=== PATIENT | female | born 1955 | race Caucasian/White ===

== ENCOUNTER 2019-03-17 07:20 | Emergency (ER) | payer OTHER ==
[2019-03-17] MEDS ORDERED: MORPHINE 4 MG/ML SYR ONE (07:37)
[2019-03-17] MEDS ORDERED: NA CHLORIDE 0.9% 1,000 ML ONE (07:37)
[2019-03-17] MEDS ORDERED: ONDANSETRON 4 MG/2 ML VIAL ONE (07:37)
[2019-03-17 08:07] LABS: Absolute Lymphocytes (CBC) 1.4 K/uL (0.7-4.9); Basophils % 0.5 % (0-1.3); Hematocrit 43.8 % (36.0-45.0); Lymphocytes % 18.4 % (15.3-44.8); MPV 9.3 fL (7.6-11.3); RBC Red Blood Cell Count 5.05 M/uL (3.86-4.86)
[2019-03-17 08:18] LABS: Albumin 4.1 g/dL (3.4-5.0); Bilirubin Direct 0.2 mg/dL (0-0.2); Bilirubin Total 0.8 mg/dL (0.2-1.0); Protein, Total 7.5 g/dL (6.4-8.2)
--- NOTE | 2019-03-17 09:11 | RAD REPORT ---
EXAM DESCRIPTION: CTAbdomen Pelvis W Contrast - 03/17/2019 8:57 am CLINICAL HISTORY: Abdominal pain. ABD PAIN COMPARISON: Abdomen Pelvis W Contrast dated 02/07/2018; Abdomen 1 View (KUB) dated 03/15/2019 TECHNIQUE: Biphasic CT imaging of the abdomen and pelvis was performed with 100 ml non-ionic IV cont rast. All CT scans are performed using dose optimization technique as appropriate and may include automated exposure control or mA/KV adjustment according to patient size. FINDINGS: The lung bases are clear. The liver, spleen, pancreas, adrenal glands and kidneys are within normal limits. No bowel obstruction, free air, free fluid or abscess. Metallic pill cam is seen in the inferior aspe ct of the cecum. The appendix is not visualized and presumed surgically absent. No evidence of signi ficant lymphadenopathy. No suspicious bony findings. IMPRESSION: No acute intra-abdominal or pelvic finding. Metallic pill cam is noted within the cecum inferiorly.
--- NOTE | 2019-03-17 09:32 | ER ---
Nurse's Notes [facility] Name: Verna Ratliff Age: 63 yrs Sex: Female : 1955 Arrival Date: 03/17/2019 Time: 07:21 Bed 19 Private MD: Diagnosis: Unspecified abdominal pain Presentation: 03/17 07:35 Presenting complaint: Patient states: last she swallowed a pill cam and had iw not passed it, Xray on Wed confirmed pill cam had not passed, was prescribed mag citrate and linzess by Dr. Chester, had large liquid stool last night and then started having severe LUQ pain at 3 am. Transition of care: patient was not received from another setting of care. Onset of symptoms was March 17, 2019. Risk Assessment: Do you want to hurt yourself or someone else? Patient reports no desire to harm self or others. Initial Sepsis Screen: Does the patient meet any 2 criteria? No. Patient's initial sepsis screen is negative. Does the patient have a suspected source of infection? No. Patient's initial sepsis screen is negative. Care prior to arrival: None. 07:35 Method Of Arrival: Ambulatory iw 07:35 Acuity: JONATHAN 3 iw Historical: - Allergies: 07:39 Sulfa (Sulfonamide Antibiotics); iw - Home Meds: 07:52 amlodipine 5 mg tab 1 tab once daily [Active]; losartan 100 mg oral tab 1 tab once iw daily [Active]; Coreg 3.125 mg Oral tab 1 tab 2 times per day [Active]; aspirin 81 mg Oral TbEC 1 tab once daily [Active]; Repatha SureClick 140 mg/mL subcutaneous pnij 1 mL every 2 wks [Active]; Farxiga 5 mg oral tab 2 tabs once daily [Active]; - PMHx: 07:39 Diabetes - NIDDM; Hypertension; Ulcers; iw - PSHx: 07:39 colon resection; Hysterectomy; iw - Immunization history:: Adult Immunizations up to date. - Social history:: Smoking status: Patient/guardian denies using tobacco. - Ebola Screening: : Patient negative for fever greater than or equal to 101.5 degrees Fahrenheit, and additional compatible Ebola Virus Disease symptoms Patient denies exposure to infectious person Patient denies travel to an Ebola-affected area in the 21 days before illness onset No symptoms or risks identified at this time. Screenin:20 Abuse screen: Denies threats or abuse. Nutritional screening: No deficits noted. em Tuberculosis screening: No symptoms or risk factors identified. Fall Risk None identified. Assessment: 07:25 General: Appears in no apparent distress. uncomfortable, Behavior is cooperative, em restless, Denies fever. Pain: Complains of pain in left upper quadrant Pain currently is 10 out of 10 on a pain scale. Quality of pain is described as pressure, sharp. Neuro: Level of Consciousness is awake, alert, obeys commands, Oriented to person, place, time, situation. Cardiovascular: Capillary refill < 3 seconds Patient's skin is warm and dry. Respiratory: Airway is patent Respiratory effort is even, unlabored, Respiratory pattern is regular, symmetrical. GI: Abdomen is flat, Bowel sounds present X 4 quads. Abd is soft X 4 quads Abdomen is tender to palpation in left upper quadrant Reports diarrhea, nausea. Derm: Skin is intact, is healthy with good turgor, Skin is pink, warm \T\ dry. Musculoskeletal: Capillary refill < 3 seconds, Range of motion: intact in all extremities. 08:30 Reassessment: Patient appears in no apparent distress at this time. Patient and/or em family updated on plan of care and expected duration. Pain level reassessed. Patient is alert, oriented x 3, equal unlabored respirations, skin warm/dry/pink. rates pain 5/10 Patient states feeling better. 09:54 Reassessment: Patient appears in no apparent distress at this time. Patient and/or em family updated on plan of care and expected duration. Pain level reassessed. Patient is alert, oriented x 3, equal unlabored respirations, skin warm/dry/pink. Patient states feeling better. Vital Signs: 07:39 BP 109 / 89; Pulse 83; Resp 18 S; Temp 98.4(O); Pulse Ox 100% on R/A; Weight 75.3 kg; iw Height 5 ft. 3 in. (160.02 cm); Pain 10/10; 08:30 BP 109 / 60; Pulse 68; Resp 18; Pulse Ox 95% on R/A; Pain 5/10; em 09:55 BP 115 / 68; Pulse 66; Resp 16; Pulse Ox 100% on R/A; em 07:39 Body Mass Index 29.41 (75.30 kg, 160.02 cm) iw ED Course: 07:20 Patient has correct armband on for positive identification. Placed in gown. Bed in low em position. Call light in reach. Side rails up X2. Pulse ox on. NIBP on. 07:21 Patient arrived in ED. ag3 07:24 Jean-Paul Owens, GORE INSERTER is PHCP. pm1 07:24 Brad Hamlin MD is Attending Physician. pm1 07:33 Jose Brooke LVN is Primary Nurse. em 07:38 Triage completed. iw 07:39 Arm band placed on. iw 07:45 Initial lab(s) drawn, by me, sent to lab. Inserted saline lock: 22 gauge in right em antecubital area, using aseptic technique. Blood collected. 09:30 Joseluis Chester MD is Referral Physician. pm1 09:53 No provider procedures requiring assistance completed. IV discontinued, intact, em bleeding controlled, No redness/swelling at site. Pressure dressing applied. Administered Medications: 07:40 Drug: NS 0.9% 1000 ml Route: IV; Rate: 1000 ml; Site: right antecubital; sg 09:55 Follow up: IV Status: Completed infusion; IV Intake: 1000ml em 07:46 Drug: morphine 4 mg {Note: RASS OF +1.} Route: IVP; Site: right antecubital; sg 07:58 Follow up: Response: No adverse reaction; Marked relief of symptoms; Pain is decreased; em RASS: Alert and Calm (0) 07:47 Drug: Zofran 4 mg Route: IVP; Site: right antecubital; sg 07:59 Follow up: Response: No adverse reaction em 09:48 Drug: Bentyl 20 mg Route: PO; em 09:55 Follow up: Response: No adverse reaction em Intake: 09:55 IV: 1000ml; Total: 1000ml. em Outcome: 09:30 Discharge ordered by . pm1 09:53 Discharged to home ambulatory, with family. em 09:53 Condition: good 09:53 Discharge instructions given to patient, family, Instructed on discharge instructions, follow up and referral plans. medication usage, Demonstrated understanding of instructions, follow-up care, medications, Prescriptions given X 1. 09:57 Patient left the ED. em Signatures: Mik Jones RN RN sg Jose Brooke LVN SCROLL SHEAR OPERATOR Prahci Villalta, RN RN iw Jean-Paul Owens, GORE INSERTER GORE INSERTER pm1 Anita Haas ag3 Corrections: (The following items were deleted from the chart) 07:49 07:46 morphine 4 mg IVP in right antecubital sg sg
--- NOTE | 2019-03-17 09:33 | EDPHYS ---
Physician Documentation [facility] Name: Verna Ratliff Age: 63 yrs Sex: Female : 1955 Arrival Date: 03/17/2019 Time: 07:21 Bed 19 Private MD: ED Physician Brad Hamlin HPI: 03/17 08:05 This 63 yrs old Female presents to ER via Ambulatory with complaints of pm1 Abdominal Pain. 08:05 The patient presents with abdominal pain in the left upper quadrant. Onset: The pm1 symptoms/episode began/occurred this morning. The symptoms do not radiate. Associated signs and symptoms: Pertinent positives: diarrhea, Pertinent negatives: nausea and vomiting, chest pain, dysuria, fever, shortness of breath. The symptoms are described as crampy. Modifying factors: The symptoms are alleviated by nothing, the symptoms are aggravated by nothing. Severity of pain: in the emergency department the pain is actually worse. The patient has not experienced similar symptoms in the past. The patient has been recently seen by a physician: Dr. Chester. Had pill cam about a week ago and KUB 2 weeks ago. Pill cam still present. Instructed to take Mag Citrate and linzess yesterday with resulting diarrhea this AM. Historical: - Allergies: 07:39 Sulfa (Sulfonamide Antibiotics); iw - Home Meds: 07:52 amlodipine 5 mg tab 1 tab once daily [Active]; losartan 100 mg oral tab 1 tab once iw daily [Active]; Coreg 3.125 mg Oral tab 1 tab 2 times per day [Active]; aspirin 81 mg Oral TbEC 1 tab once daily [Active]; Repatha SureClick 140 mg/mL subcutaneous pnij 1 mL every 2 wks [Active]; Farxiga 5 mg oral tab 2 tabs once daily [Active]; - PMHx: 07:39 Diabetes - NIDDM; Hypertension; Ulcers; iw - PSHx: 07:39 colon resection; Hysterectomy; iw - Immunization history:: Adult Immunizations up to date. - Social history:: Smoking status: Patient/guardian denies using tobacco. - Ebola Screening: : Patient negative for fever greater than or equal to 101.5 degrees Fahrenheit, and additional compatible Ebola Virus Disease symptoms Patient denies exposure to infectious person Patient denies travel to an Ebola-affected area in the 21 days before illness onset No symptoms or risks identified at this time. ROS: 08:05 Constitutional: Negative for fever, chills, and weight loss, Eyes: Negative for injury, pm1 pain, redness, and discharge, ENT: Negative for injury, pain, and discharge, Neck: Negative for injury, pain, and swelling, Cardiovascular: Negative for chest pain, palpitations, and edema, Respiratory: Negative for shortness of breath, cough, wheezing, and pleuritic chest pain. 08:05 Back: Negative for injury and pain, : Negative for injury, bleeding, discharge, and swelling, MS/Extremity: Negative for injury and deformity, Skin: Negative for injury, rash, and discoloration, Neuro: Negative for headache, weakness, numbness, tingling, and seizure. 08:05 Abdomen/GI: Positive for abdominal pain, diarrhea, Negative for nausea and vomiting, constipation. Exam: 08:05 Constitutional: This is a well developed, well nourished patient who is awake, alert, pm1 and in no acute distress. Head/Face: Normocephalic, atraumatic. Eyes: Pupils equal round and reactive to light, extra-ocular motions intact. Lids and lashes normal. Conjunctiva and sclera are non-icteric and not injected. Cornea within normal limits. Periorbital areas with no swelling, redness, or edema. ENT: Nares patent. No nasal discharge, no septal abnormalities noted. Tympanic membranes are normal and external auditory canals are clear. Oropharynx with no redness, swelling, or masses, exudates, or evidence of obstruction, uvula midline. Mucous membranes moist. Neck: Trachea midline, no thyromegaly or masses palpated, and no cervical lymphadenopathy. Supple, full range of motion without nuchal rigidity, or vertebral point tenderness. No Meningismus. Chest/axilla: Normal chest wall appearance and motion. Nontender with no deformity. No lesions are appreciated. Cardiovascular: Regular rate and rhythm with a normal S1 and S2. No gallops, murmurs, or rubs. Normal PMI, no JVD. No pulse deficits. Respiratory: Lungs have equal breath sounds bilaterally, clear to auscultation and percussion. No rales, rhonchi or wheezes noted. No increased work of breathing, no retractions or nasal flaring. 08:05 Back: No spinal tenderness. No costovertebral tenderness. Full range of motion. Skin: Warm, dry with normal turgor. Normal color with no rashes, no lesions, and no evidence of cellulitis. MS/ Extremity: Pulses equal, no cyanosis. Neurovascular intact. Full, normal range of motion. 08:05 Abdomen/GI: Inspection: abdomen appears normal, Bowel sounds: normal, Palpation: soft, mild abdominal tenderness, in the left upper quadrant, mass, is not appreciated, rebound tenderness, is not appreciated. 08:05 Neuro: Orientation: is normal, Motor: is normal, moves all fours. Vital Signs: 07:39 BP 109 / 89; Pulse 83; Resp 18 S; Temp 98.4(O); Pulse Ox 100% on R/A; Weight 75.3 kg; iw Height 5 ft. 3 in. (160.02 cm); Pain 10/10; 08:30 BP 109 / 60; Pulse 68; Resp 18; Pulse Ox 95% on R/A; Pain 5/10; em 09:55 BP 115 / 68; Pulse 66; Resp 16; Pulse Ox 100% on R/A; em 07:39 Body Mass Index 29.41 (75.30 kg, 160.02 cm) iw MDM: 07:24 Patient medically screened. pm1 09:29 Data reviewed: vital signs. Data interpreted: Pulse oximetry: on room air is 95 %. pm1 Interpretation: normal. 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 03/17 07:31 Order name: Basic Metabolic Panel pm1 03/17 07:31 Order name: CBC with Diff pm1 03/17 07:31 Order name: Creatinine for Radiology pm1 03/17 07:31 Order name: Hepatic Function pm1 03/17 07:31 Order name: Lipase pm1 03/17 08:08 Order name: CBC with Automated Diff; Complete Time: 08:16 EDMS 03/17 07:31 Order name: CT Abd/Pelvis - IV Contrast Only pm1 03/17 08:15 Order name: Creatinine (Radiology Only); Complete Time: 08:16 EDMS 03/17 08:18 Order name: Basic Metabolic Panel; Complete Time: 08:23 EDMS 03/17 08:18 Order name: Liver (Hepatic) Function; Complete Time: 08:23 EDMS 03/17 08:18 Order name: Lipase; Complete Time: 08:23 EDMS 03/17 07:31 Order name: IV Saline Lock; Complete Time: 07:48 pm1 03/17 07:31 Order name: Labs collected and sent; Complete Time: 07:48 pm1 Administered Medications: 07:40 Drug: NS 0.9% 1000 ml Route: IV; Rate: 1000 ml; Site: right antecubital; sg 09:55 Follow up: IV Status: Completed infusion; IV Intake: 1000ml em 07:46 Drug: morphine 4 mg {Note: RASS OF +1.} Route: IVP; Site: right antecubital; sg 07:58 Follow up: Response: No adverse reaction; Marked relief of symptoms; Pain is decreased; em RASS: Alert and Calm (0) 07:47 Drug: Zofran 4 mg Route: IVP; Site: right antecubital; sg 07:59 Follow up: Response: No adverse reaction em 09:48 Drug: Bentyl 20 mg Route: PO; em 09:55 Follow up: Response: No adverse reaction em Disposition: 16:01 Co-signature as Attending Physician, Brad Hamlin MD I agree with the assessment and kdr plan of care. Disposition: 03/17/19 09:30 Discharged to Home. Impression: Unspecified abdominal pain. - Condition is Stable. - Discharge Instructions: Abdominal Pain, Adult. - Prescriptions for Bentyl 20 mg Oral Tablet - take 1 tablet by ORAL route every 6 hours As needed; 20 tablet. - Work release form, Medication Reconciliation Form, Thank You Letter, Antibiotic Education, Prescription Opioid Use form. - Follow up: Emergency Department; When: As needed; Reason: Worsening of condition. Follow up: Private Physician; When: 2 - 3 days; Reason: Recheck today's complaints, Continuance of care, Re-evaluation by your physician. Follow up: Joseluis Chester MD; When: 2 - 3 days; Reason: Recheck today's complaints, Continuance of care, Re-evaluation by your physician. - Problem is new. - Symptoms have improved. Signatures: Dispatcher [employer] EDMik Norman, RN RN sg Brad Hamlin MD MD kdr Munoz, Edgar, REED MAKER REED MAKER em Prachi Medrano RN RN iw Jean-Paul Owens, PIPE FITTER [employer] PIPE FITTER [employer] pm1 Corrections: (The following items were deleted from the chart) 09:57 09:30 03/17/2019 09:30 Discharged to Home. Impression: Unspecified abdominal pain. em Condition is Stable. Forms are Medication Reconciliation Form, Thank You Letter, Antibiotic Education, Prescription Opioid Use. Follow up: Emergency Department; When: As needed; Reason: Worsening of condition. Follow up: Private Physician; When: 2 - 3 days; Reason: Recheck today's complaints, Continuance of care, Re-evaluation by your physician. Follow up: Joseluis Chester; When: 2 - 3 days; Reason: Recheck today's complaints, Continuance of care, Re-evaluation by your physician. Problem is new. Symptoms have improved. pm1
[2019-03-17] MEDS ORDERED: DICYCLOMINE HCL 10 MG CAP ONE (09:39)
== END 2019-03-17 09:57 | disposition home or self-care (01) ==
LOC: ER 07:20
DX: R10.12 Left upper quadrant pain (principal); E11.9 Type 2 diabetes mellitus without complications; I10 Essential (primary) hypertension; Z88.2 Allergy status to sulfonamides; Z98.890 Other specified postprocedural states
CPT/HCPCS: 96361; 85025; 80048; 36415; 80076; 83690; 74177; 96375; 96374; 99284; Q9967; J7030; J2405